=== PATIENT | male | born 1985 | race American Indian/Alaskan Native ===

== ENCOUNTER 2021-07-02 07:43 | Emergency (ER) | payer SELFPAY ==
[2021-07-02 08:31] VITALS: BP 128/95
[2021-07-02] MEDS ORDERED: DEXAMETHASONE 4 MG TAB PO ONE (08:51)
[2021-07-02] MEDS ORDERED: KETOROLAC 10 MG TAB PO ONE (08:51)
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
--- NOTE | 2021-07-02 09:28 | XRay Report ---
CHEST 2 VIEWS, 07/02/2021 INDICATION: Chest pain COMPARISON: None FINDINGS: Support devices: None. Heart: The cardiac silhouette is normal in size. Lungs/pleura: The lungs are clear of focal airspace disease or significant pleural effusion. Additional findings: No significant acute abnormality. IMPRESSION: 1. No evidence of acute cardiopulmonary process. Signer Name: Nkechi Reilly MD Signed: 07/02/2021 9:24 AM Workstation Name: [id number]
[2021-07-02 10:32] LABS: Hematocrit 37.6 % (35.5-45.6); Hemoglobin 12.2 gm/dl (11.8-15.2); Mean Corpuscular HGB Conc 33 % (32-34); Mean Corpuscular Volume 90 fl (84-94); Platelet Count 180 K/mm3 (140-440); Red Cell Distribution Width 14.7 % (13.2-15.2)
[2021-07-02 10:58] LABS: Erythrocyte Sedimentation Rate 10 mm/Hr (0-20)
[2021-07-02 11:15] LABS: Alanine Aminotransferase 6 units/L (7-56); Albumin 3.8 g/dL (3.9-5); BUN/Creatinine Ratio 13; Blood Urea Nitrogen 12 mg/dL (9-20); Calcium 8.7 mg/dL (8.4-10.2); Hemolysis Index 11
[2021-07-02 11:40] LABS: Basophils % (Manual) 0 % (0.0-1.8); Eosinophils % (Manual) 0 % (0.0-4.3); Platelet Estimate Consistent w Auto; RBC Morphology Normal; Total Cells Counted 100
[2021-07-02 11:43] LABS: C-Reactive Protein < 0.30 mg/dL (0.00-1.30)
--- NOTE | 2021-07-03 09:06 | Electrocardiograph Report ---
[facility] Test Date: 2021-07-02 Test Time: 08:36:20 Pat Name: ANAHI STEINBERG Department: Room: Gender: M Machine [employer] C[employer]: HOWARD : 1985 Requested By: DINA VINES Order Number: [id number] Reading MD: Harjinder Rivera Measurements Intervals Cade Rate: 67 P: -47 IN: 133 QRS: 80 QRSD: 90 T: 60 QT: 394 QTc: 416 Interpretive Statements Ectopic atrial rhythm ST elevation suggests acute pericarditis OR EARLY REPOLARIZATION No previous ECG available for comparison Electronically Signed On 07-03-2021 9:06:25 EDT by Harjinder Rivera
== END 2021-07-02 12:21 | disposition home or self-care (01) ==
LOC: ED 07:43
DX: R07.89 Other chest pain (principal); R51.9 Headache, unspecified; F17.200 Nicotine dependence, unspecified, uncomplicated; Z98.890 Other specified postprocedural states
CPT/HCPCS: 36415; 71046; 80053; 84484; 85007; 85025; 85652; 86140; 93005; 99284; J8540